=== PATIENT | male | born 1985 | race Caucasian/White ===

== ENCOUNTER 2017-02-11 19:24 | Emergency (ER) | payer BC ==
[2017-02-11] MEDS ORDERED: MORPHINE SULFATE 4 MG/ML SYRG ONE (20:07)
[2017-02-11] MEDS ORDERED: MORPHINE SULFATE 4 MG/ML SYRG IM ONE (20:11)
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
[2017-02-11] MEDS ORDERED: KETOROLAC TROMETHAMINE 60 MG/2 ML VIAL IM ONE ×2 (20:54→21:04)
[2017-02-11] MEDS ORDERED: ONDANSETRON HCL/PF 2 MG/ML VIAL IM ONE (21:02)
[2017-02-11] MEDS ORDERED: ONDANSETRON HCL/PF 2 MG/ML VIAL ONE (21:15)
[2017-02-11 21:35] VITALS: BP 116/62
== END 2017-02-11 21:30 | disposition home or self-care (01) ==
LOC: ER 19:24
PROC: 2W3QX1Z Immobilization of Right Lower Leg using Splint (ICD-10-PCS; principal; 2017-02-11)
PROC: 2W3BX1Z Immobilization of Left Upper Arm using Splint (ICD-10-PCS; 2017-02-11)
DX: S43.102A Unspecified dislocation of left acromioclavicular joint, initial encounter (principal); R07.81 Pleurodynia; M25.561 Pain in right knee; V86.59XA Driver of other special all-terrain or other off-road motor vehicle injured in nontraffic accident, initial encounter